=== PATIENT | male | born 1980 | race Two or more races ===

== ENCOUNTER 2024-09-29 23:17 | Emergency (ER) | payer BC, MEDICAID, SELFPAY ==
[2024-09-29 23:17] VITALS: BMI 30.5
[2024-09-30 00:25] VITALS: BP 134/79; PULSE 55; RESP 18; TEMP 36.4; O2SAT 100
--- NOTE | 2024-09-30 00:28 | EKG_ITS ---
[facility] Test Date: 2024-09-30 Pat Name: ROBERT HELTON Department: Room: - Gender: Male Manager Photo: : 1980 Requested By: Dakota Sharma Order Number: [id number] Reading MD: Dakota Sharma Measurements Intervals [place] Rate: 50 P: 62 ND: 193 QRS: 71 QRSD: 98 T: 53 QT: 404 QTc: 370 Interpretive Statements SINUS BRADYCARDIA Compared to ECG 07/29/2024 23:12:42 Sinus rhythm no longer present /store/S0/[id number]
[2024-09-30] MEDS: DIAZEPAM 5 MG TABLET 10 MG PO (01:43)
[2024-09-30 02:17] LABS: Basophils # (Auto) 0.1 Thou/mm3 (0.0-0.2); Basophils % (Auto) 1 % (0-2.5); Eosinophils # (Auto) 0.5 Thou/mm3 (0.0-0.5); Eosinophils % (Auto) 6 % (0-10); Hematocrit 39.6 % (41.0-53.0); Hemoglobin 13.3 g/dL (13.5-16.0); Immature Granulocytes % (Auto) 0 % (0-0); Immature Granulocytes Auto 0.01 Thou/mm3 (0.00-0.00); Lymphocytes # (Auto) 2.9 Thou/mm3 (1.0-4.8); Lymphocytes % (Auto) 35 % (10-50); Mean Corpuscular HGB Conc 33.6 g/dl (31.0-37.0); Mean Corpuscular Hemoglobin 27.8 pg (25.0-35.0); Mean Corpuscular Volume 83 fL (80-100); Monocytes # (Auto) 0.6 Thou/mm3 (0.0-0.8); Monocytes % (Auto) 8 % (0-12); Neutrophils # (Auto) 4.1 Thou/mm3 (1.8-7.7); Neutrophils % (Auto) 50 % (37-80); Nucleated Red Blood Cell % 0 /100 WBC (0); Platelet Count 195 Thou/mm3 (140-440); RDW Standard Deviation 38.5 fL (35.1-43.9); Red Blood Count 4.78 Miln/mm3 (4.50-5.90); White Blood Count 8.1 Thou/mm3 (3.8-10.6)
[2024-09-30 02:30] LABS: Alanine Aminotransferase 18 U/L (10-49); Albumin, Serum 4.6 gm/dL (3.5-5.0); Albumin/Globulin Ratio 1.9 (1.2-2.2); Alkaline Phosphatase 70 U/L (46-116); Anion Gap 6 (7-16); Aspartate Amino Transferase 19 U/L (0-34); BUN/Creatinine Ratio 17 Ratio (12-20); Bilirubin,Total 1.2 mg/dL (0.3-1.2); Blood Urea Nitrogen 20 mg/dL (9-23); Calcium 9.5 mg/dL (8.3-10.6); Calcium (Corrected) 9.5 mg/dL (8.5-10.1); Carbon Dioxide 27.9 mMol/L (20.0-31.0); Chloride 105 mMol/L (98-107); Creatinine (Component) 1.2 mg/dL (0.6-1.3); Estimated Creatinine Clearance 87.9 mL/min (>60); Globulin 2.4 gm/dL (2.3-3.5); Glucose 96 mg/dL (74-106); Osmolality,Calculated 280 (275-295); Potassium 3.9 mMol/L (3.4-5.1); Sodium 139 mMol/L (136-145); Troponin I < 0.020 ng/mL (0.0-0.045); eGFR > 60 See Note
[2024-09-30 02:41] LABS: B-Type Natriuretic Peptide < 20 pg/mL (0-100)
[2024-09-30 03:04] VITALS: BP 135/78; PULSE 55; RESP 16; TEMP 36.5; O2SAT 99
--- NOTE | 2024-09-30 05:32 | PD.EDANX ---
ED Anxiety RME/HPI General Chief Complaint: General Adult/Misc Complain Stated Complaint: SOB, heart palpitations Time Seen by Provider: 09/30/24 01:38 Arrival date/time: 09/29/24 23:17 44M with history of drug use and anxiety presents to ED with 2 days of heart palps and anxiety. Patient denies SI/HI. Limitations: no limitations Related Data Home Medications ?Medication ?Instructions ?Recorded ?Confirmed No Known Home Medications 03/15/18 03/15/18 Allergies Allergy/AdvReac Type Severity Reaction Status Date / Time No Known Allergies Allergy Verified 09/29/24 23:19 Review of Systems Review of Systems Systems Reviewed: All systems reviewed, normal except as documented Constitutional Constitutional: Reports system reviewed and no additional complaints, except as documented, Denies fever(s) and Denies headache(s) ENT Ears, Nose, Mouth, and Throat: Denies disequilibrium and Denies headache(s) Cardiovascular Cardiovascular: Reports system reviewed and no additional complaints, except as documented, Reports as per HPI, Denies chest pain, Denies dyspnea and Reports palpitations Respiratory Respiratory: Reports system reviewed and no additional complaints, except as documented, Denies cough and Denies dyspnea Gastrointestinal Gastrointestinal: Reports system reviewed and no additional complaints, except as documented, Denies abdominal pain, Denies nausea and Denies vomiting Neurologic Neurologic: Reports system reviewed and no additional complaints, except as documented, Denies confusion, Denies disequilibrium and Denies headache(s) Psychiatric Psychiatric: Reports as per HPI, Reports anxiety and Denies confusion Endocrine Endocrine: Reports palpitations Past Medical History Past Medical History NEUROLOGIC: Negative Neurological Disorders CARDIAC: Positive Cardiac Disorders ( They said my heart skips a beat ); Negative Congestive Heart Failure RESPIRATORY: Negative Chronic Obstructive Pulmonary Disease (COPD) GASTROINTESTINAL: Negative Gastrointestinal Disorders GENITOURINARY: Negative Genitourinary Disorders or Renal Disease MUSCULOSKELETAL: Negative Musculoskeletal Disorders ENDOCRINE: Negative Endocrine Disorders, Diabetes Mellitus Type 1 or Diabetes Mellitus Type 2 HEMATOLOGIC: Negative Blood Disorders PSYCHO/SOCIAL: Positive Anxiety OTHER HISTORY: Negative Cancer Family History FAMILY HISTORY: Negative Family Cardiac Disorders Surgical History SURGICAL: Positive Abdominal Surgery and Nephrectomy; Negative Cardiac Surgery Social History SMOKING STATUS: Never smoker SUBSTANCE USE: does not use ED Exam General Limitations: Present no limitations General appearance: Present alert and in no apparent distress Head Head exam: Present atraumatic Eye Eye exam: Present normal appearance, PERRL and EOMI ENT ENT exam: Present normal exam, normal oropharynx and mucous membranes moist Neck Neck exam: Present normal inspection, full ROM and trachea midline Chest Chest inspection: Present normal inspection and symmetric chest wall rise Respiratory Respiratory exam: Present normal lung sounds bilaterally Cardiovascular Cardiovascular exam: Present regular rate, normal rhythm and normal heart sounds Abdominal Exam Abdominal exam: Present soft and normal bowel sounds Extremities Exam Extremities exam: Present normal inspection and full ROM Back Exam Back exam: Present normal inspection and full ROM Neurological Exam Neurological exam: Present alert, oriented X3 and CN II-XII intact Psychiatric Psychiatric exam: Present normal affect and anxious Skin Skin exam: Present warm, dry, intact and normal color Course Quality Measures none Orders Category Date Time Status EKG (ED ONLY) *Do not use* NOW Care 09/30/24 00:28 Completed EKG (ED Only) Stat Exams 09/30/24 00:28 Draft BNP [B-Type Natriuretic Peptide] Stat Lab 09/30/24 01:54 Completed CBC Stat Lab 09/30/24 01:54 Completed CMP [Comprehensive Metabolic Panel] Stat Lab 09/30/24 01:54 Completed Troponin I Stat Lab 09/30/24 01:54 Completed Diazepam [Valium] Med 09/30/24 01:39 Discontinued 10 mg PO X1 ONE Vital Signs Vital signs: Vital Signs Temperature 97.5 F 09/30/24 00:25 Pulse Rate 55 L 09/30/24 00:25 Respiratory Rate 18 09/30/24 00:25 Blood Pressure 134/79 H 09/30/24 00:25 Pulse Oximetry (%) 100 09/30/24 00:25 Oxygen Delivery Method Room Air 09/30/24 00:25 Anxiety MDM Narrative MDM Narrative: 44M with history of drug use and anxiety presents to ED with 2 days of heart palps and anxiety. Patient denies SI/HI. Physical exam reveals clear ENT and lungs. RRR. Patient is afebrile, alert, but anxious. EKG is sinus prem of 55. Normal trop/BNP. No leukocytosis. CMP remarkable. Valium relieved symptoms. Counseled to see PCP about bradycardia. Patient data External records reviewed:: [facility] previous records Clinical information provided by:: patient Social determinants that could affect healthcare access:: mental health Patient has the following chronic illnesses:: anxiety and drug use How is presenting disease/condition affected by chronic disease/condition?: caused by Evaluation data The following diagnostics were reviewed and interpreted by me:: lab results and EKG tracing(s) Lab and/or radiology exams considered but not ordered:: ordered Interpretation Summary: above Medications / Prescriptions Medications or Prescriptions considered but not ordered:: ordered Medication administrations:: Medication Administration History Discontinued Medications Diazepam (Diazepam 5 Mg Tablet) 10 mg PO X1 ONE Stop: 09/30/24 01:40 Last Admin: 09/30/24 01:43 Dose: 10 mg Documented By: DB Consultations Consultation(s) initiated? (list below): No Diagnosis Differential diagnosis anxiety: hyperventilation, panic disorder, acute anxiety and other (bradycardia) Most likely diagnosis given after review of the tests above:: bradycardia and anxiety Admission Indicated Admission indicated?: not indicated Admission Request Was there a request for admission?: No Disposition Plan Disposition Plan: Discharge Discharge Attestation Discharge Attestation: The patient and all family members were given an opportunity to ask questions and understood the discharge instructions. Discharge instructions specifically effects, indications for sooner follow up or return to the emergency department, and the expected course of current diagnosis. Patient condition: Stable Discharge Plan Plan Patient Disposition: HOME (Self Care) Disposition Comment: Stable Prescriptions/Referrals Prescriptions/Med Rec: No Action No Known Home Medications Problem List Clinical Impression: Anxiety, Bradycardia Patient/Caregiver Discharge Instructions Education Materials: ED Bradycardia Additional Instructions: Please follow-up with PCP within 24-48 hours and return immediately if symptoms worsen. Follow-up with PCP about bradycardia. Print Language: Nigerian Stand Alone Forms: Patient Portal Info Letter BUSTER/KVNG Supervising Physician BUSTER/KVNG Supervising Physician: Dr. Hooks
== END 2024-09-30 03:04 | disposition home or self-care (01) ==
PROVIDERS: Physician Assistant; Emergency Provider Emergency Medicine
DX: F41.9 Anxiety disorder, unspecified (principal); R00.1 Bradycardia, unspecified
CPT/HCPCS: 36415; 80053; 83880; 84484; 85025; 93005; 99283; A9270

== ENCOUNTER 2024-10-02 20:08 | Emergency (ER) | payer BC, MEDICAID, SELFPAY ==
[2024-10-02 20:11] VITALS: BP 124/76; PULSE 84; RESP 19; TEMP 36.8; O2SAT 98
[2024-10-02 20:14] VITALS: PULSE 76; RESP 20; O2SAT 99
[2024-10-02 20:26] VITALS: BMI 30.5
--- NOTE | 2024-10-02 20:28 | PC.NURSE ---
Pt coming from home for c/o SOB, tingling to left hand, ringing in ears, and feeling like heart is racing since 1940 when pt was lying in bed. At this time pt only endorses mild tingling to left hand says all other symptoms have now resolved. Pt had similar episode of this on Thursday and was seen here. Pt is A&O x4, GCS 15, no signs of distress noted, EKG done, placed on residential monitor, bed locked in lowest position, call light within reach.
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
[2024-10-02 21:32] LABS: Basophils % (Auto) 0 % (0-2.5); Eosinophils # (Auto) 0.5 Thou/mm3 (0.0-0.5); Eosinophils % (Auto) 6 % (0-10); Hematocrit 38.6 % (41.0-53.0); Hemoglobin 12.7 g/dL (13.5-16.0); Immature Granulocytes % (Auto) 0 % (0-0); Immature Granulocytes Auto 0.02 Thou/mm3 (0.00-0.00); Lymphocytes # (Auto) 2.9 Thou/mm3 (1.0-4.8); Lymphocytes % (Auto) 36 % (10-50); Mean Corpuscular HGB Conc 32.9 g/dl (31.0-37.0); Mean Corpuscular Hemoglobin 27.9 pg (25.0-35.0); Mean Corpuscular Volume 85 fL (80-100); Monocytes # (Auto) 0.5 Thou/mm3 (0.0-0.8); Monocytes % (Auto) 6 % (0-12); Neutrophils # (Auto) 4.1 Thou/mm3 (1.8-7.7); Neutrophils % (Auto) 51 % (37-80); Nucleated Red Blood Cell % 0 /100 WBC (0); Platelet Count 205 Thou/mm3 (140-440); RDW Standard Deviation 39.5 fL (35.1-43.9); Red Blood Count 4.55 Miln/mm3 (4.50-5.90)
[2024-10-02 21:37] VITALS: BP 128/69; PULSE 64; RESP 20; O2SAT 98
[2024-10-02 21:54] LABS: Alanine Aminotransferase 14 U/L (10-49); Albumin, Serum 4.2 gm/dL (3.5-5.0); Albumin/Globulin Ratio 1.7 (1.2-2.2); Alkaline Phosphatase 70 U/L (46-116); Anion Gap 8 (7-16); Aspartate Amino Transferase 13 U/L (0-34); BUN/Creatinine Ratio 18 Ratio (12-20); Bilirubin,Total 0.9 mg/dL (0.3-1.2); Blood Urea Nitrogen 18 mg/dL (9-23); Calcium 9.6 mg/dL (8.3-10.6); Calcium (Corrected) 9.6 mg/dL (8.5-10.1); Carbon Dioxide 26.1 mMol/L (20.0-31.0); Chloride 110 mMol/L (98-107); Estimated Creatinine Clearance 105.5 mL/min (>60); Globulin 2.5 gm/dL (2.3-3.5); Glucose 85 mg/dL (74-106); Osmolality,Calculated 287 (275-295); Potassium 3.6 mMol/L (3.4-5.1); Sodium 144 mMol/L (136-145); Total Protein 6.7 gm/dL (5.7-8.2); eGFR > 60 See Note
[2024-10-02 22:19] VITALS: PULSE 67; O2SAT 99
== END 2024-10-02 22:31 | disposition home or self-care (01) ==
PROVIDERS: Registered Nurse General Practice; Emergency Provider Emergency Medicine
DX: R00.2 Palpitations (principal); R00.1 Bradycardia, unspecified
CPT/HCPCS: 36415; 80053; 85025; 93005; 99283

== ENCOUNTER 2025-01-29 01:32 | Emergency (ER) | payer BC, MEDICAID, SELFPAY ==
[2025-01-29 01:34] VITALS: BMI 30.1
--- NOTE | 2025-01-29 01:52 | EDNOTE_ITS ---
ED Abdominal Pain RME/HPI General Chief Complaint: Abdominal Pain Stated complaint: EPIGASTRIC PAIN/BURNING Time seen by provider: 01/29/25 01:45 Arrival date/time: 01/29/25 01:32 RME / HPI RME / HPI narrative: This section includes all my notes and documentations, including HPI, PE, and ED course. Hasmukh Shultz MD HPI: 45-year-old male here with a few hour history of epigastric tenderness. He describes burning pain. No significant nausea. No vomiting. No fever or chills. Had cholecystectomy in the past. Concerned about his heart. No other complaints. ROS: All negative except as documented in HPI. Physical Exam: General: Alert and oriented. No acute distress when remaining still. Eyes: Conjunctivae and lids clear. ENT: No nasal congestion. Neck: Supple. Heart: RRR. Lungs: No respiratory distress. Good air movement. No rhonchi, wheezing, rales. Abdomen: Soft with mild epigastric tenderness. Normal bowel sounds. No distension. No rebound or guarding. Back: No CVA tenderness. Skin: Warm and dry. Neuro: Alert and oriented X 3. I reviewed all diagnostic test results. My interpretation of the EKG is sinus rhythm with no acute ST?T changes. My interpretation of the KUB is no acute findings, official radiology report is pending. Blood tests unremarkable, including their troponin. At this point, diagnoses include GERD. Treatment here included famotidine and Protonix. Significant improvement noted. Recommended more outpatient workup. Based on my best medical judgment, made decision no further evaluation or treatment indicated at this time. Patient understands and agrees to the discharge instructions customized and printed, see below. Discharge instructions from Dr. Shultz: ?After evaluation, there is no heart attack. Your symptoms are due to acid ref lux (see attached handout).? ?To help heal acid reflux, take Omeprazole 40 mg every morning and Famotidine 40 mg at bedtime for a week then as needed. ?Clear liquid diet for 24 hours.? Then slowly advance diet as tolerated. ?Avoid food and beverages that can trigger and worsen GERD.? See attached handout. ?See a private doctor on 01/30/2025 for recheck and further care. To make sure there is no serious intra-abdominal condition, ask for help with more investigation not available here in the ER.? Such as EGD or scoping the stomach, colonoscopy or scoping the colon, and referral to see gastroente rologist. ?Seek immediate medical care with worsening or with any concerns. Hasmukh Shultz MD Related Data Previous Rx's ?Medication ?Instructions ?Recorded famotidine 40 mg tablet 40 mg PO .bedtime #30 tabs 0 01/29/25 omeprazole 40 mg capsule,delayed 40 mg PO QDAY #30 cap s 01/29/25 release Allergies Allergy/AdvReac Type Severity Reaction Status Date / Time No Known Allergies Allergy Verified 09/29/24 23:19 Course Quality Measures none Orders Category Date Time Status EKG (ED ONLY) *Do not use* NOW Care 01/29/25 01:56 Completed EKG (ED Only) Stat Exams 01/29/25 01:56 Draft KUB [XR abdomen 1V] Stat Exams 01/29/25 01:56 Taken Amylase Stat Lab 01/29/25 02:28 Completed CBC Stat Lab 01/29/25 02:28 Completed CMP [Comprehensive Metabolic Panel] Stat Lab 01/29/25 02:28 Completed Lipase Stat Lab 01/29/25 02:28 Completed Magnesium Stat Lab 01/29/25 02:28 Completed Troponin I Stat Lab 01/29/25 02:28 Completed Famotidine [Pepcid] Med 01/29/25 01:57 Discontinued 40 mg PO X1 ONE Pantoprazole [Protonix] Med 01/29/25 01:57 Discontinued 40 mg PO X1 ONE Vital Signs Vital signs: Vital Signs Temperature 98.4 F 01/29/25 02:11 Pulse Rate 56 L 01/29/25 02:11 Respiratory Rate 18 01/29/25 02:11 Blood Pressure 122/74 01/29/25 02:11 Pulse Oximetry (%) 100 01/29/25 02:11 Oxygen Delivery Method Room Air 01/29/25 02:11 Abdominal Pain MDM Patient data External records reviewed:: [facility] previous records Clinical information provided by:: patient Social determinants that could affect healthcare access:: none Patient has the following chronic illnesses:: None How is presenting disease/condition affected by chronic disease/condition?: no chronic disease Evaluation data The following diagnostics were reviewed and interpreted by me:: lab results, radiology exam(s) and EKG tracing(s) Lab and/or radiology exams considered but not ordered:: None Interpretation Summary: Normal diagnostics Medications / Prescriptions Medications or Prescriptions considered but not ordered:: None Medication administrations:: Medication Administration History Discontinued Medications Famotidine (Famotidine 20 Mg Tablet) 40 mg PO X1 ONE Stop: 01/29/25 01:58 Last Admin: 01/29/25 02:21 Dose: 40 mg Documented By: MARKIE Pantoprazole Sodium (Pantoprazole 40 Mg Tablet) 40 mg PO X1 ONE Stop: 01/29/25 01:58 Last Admin: 01/29/25 02:21 Dose: 40 mg Documented By: MARKIE Famotidine and Protonix Consultations Consultation(s) initiated? (list below): No Diagnosis Differential diagnosis abdominal pain: constipation, small bowel obstruction and other (GERD, gastritis, PUD) Most likely diagnosis given after review of the tests above:: GERD Admission Indicated Admission indicated?: not indicated Explain why admission is indicated or not indicated:: There was no indication for admission. Admission Request Was there a request for admission?: No Disposition Plan Disposition Plan: Discharge Discharge Attestation Discharge Attestation: The patient and all family members were given an opportunity to ask questions and understood the discharge instructions. Discharge instructions specifically effects, indications for sooner follow up or return to the emergency department, and the expected course of current diagnosis. Patient condition: Stable Discharge Plan Plan Patient Disposition: HOME (Self Care) Prescriptions/Referrals Prescriptions/Med Rec: New famotidine 40 mg tablet 40 mg PO .bedtime Qty: 30 0RF omeprazole 40 mg capsule,delayed release(DR/EC) 40 mg PO QDAY Qty: 30 0RF Referrals: No Primary/Family,Physician [Primary Care Provider] - In 1 week Problem List Clinical Impression: GERD (gastroesophageal reflux disease) Patient/Caregiver Discharge Instructions Discharge Activity: activity as tolerated Education Materials: ED GERD (Adult) Additional Instructions: Discharge instructions from Dr. Shultz: ?After evaluation, there is no heart attack. Your symptoms are due to acid reflux (see attached handout).? ?To help heal acid reflux, take Omeprazole 40 mg every morning and Famotidine 40 mg at bedtime for a week then as needed. ?Clear liquid diet for 24 hours.? Then slowly advance diet as tolerated. ?Avoid food and beverages that can trigger and worsen GERD.? See attached handout. ?See a private doctor on 01/30/2025 for recheck and further care. To make sure there is no serious intra-abdominal condition, ask for help with more investigation not available here in the ER.? Such as EGD or scoping the stomach, colonoscopy or scoping the colon, and referral to see crown and bridge technician. ?Seek immediate medical care with worsening or with any concerns. Print Language: Maori Stand Alone Forms: [place] Award Info., Patient Portal Info Letter
--- NOTE | 2025-01-29 01:56 | XR_ITS ---
Examination: Abdomen AP single view Technique: AP portable supine abdomen, single view Exam date and time: January 29, 2025 0203 hours INDICATIONS: Onset abdominal pain today. FINDINGS: Moderate to large amount of stool in the right and transverse colon No obstruction Surgical clips right abdomen No free air IMPRESSION: Nonobstructive bowel gas pattern
--- NOTE | 2025-01-29 01:56 | EKG_ITS ---
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
[2025-01-29 02:11] VITALS: BP 122/74; PULSE 56; RESP 18; TEMP 36.9; O2SAT 100
[2025-01-29] MEDS: FAMOTIDINE 20 MG TABLET 40 MG PO (02:21)
[2025-01-29] MEDS: PANTOPRAZOLE 40 MG TABLET PO (02:21)
[2025-01-29 02:58] LABS: Basophils % (Auto) 1 % (0-2.5); Eosinophils # (Auto) 0.4 Thou/mm3 (0.0-0.5); Eosinophils % (Auto) 5 % (0-10); Hematocrit 37.6 % (41.0-53.0); Hemoglobin 12.5 g/dL (13.5-16.0); Immature Granulocytes % (Auto) 0 % (0-0); Immature Granulocytes Auto 0.02 Thou/mm3 (0.00-0.00); Lymphocytes # (Auto) 2.9 Thou/mm3 (1.0-4.8); Lymphocytes % (Auto) 38 % (10-50); Mean Corpuscular HGB Conc 33.2 g/dl (31.0-37.0); Mean Corpuscular Hemoglobin 27.9 pg (25.0-35.0); Mean Corpuscular Volume 84 fL (80-100); Monocytes # (Auto) 0.7 Thou/mm3 (0.0-0.8); Monocytes % (Auto) 9 % (0-12); Neutrophils # (Auto) 3.7 Thou/mm3 (1.8-7.7); Neutrophils % (Auto) 48 % (37-80); Nucleated Red Blood Cell % 0 /100 WBC (0); Platelet Count 198 Thou/mm3 (140-440); Red Blood Count 4.48 Miln/mm3 (4.50-5.90); White Blood Count 7.7 Thou/mm3 (3.8-10.6)
[2025-01-29 03:10] LABS: Alanine Aminotransferase 15 U/L (10-49); Albumin, Serum 4.1 gm/dL (3.5-5.0); Albumin/Globulin Ratio 1.6 (1.2-2.2); Alkaline Phosphatase 62 U/L (46-116); Amylase 98 U/L (30-118); Anion Gap 8 (7-16); Aspartate Amino Transferase 17 U/L (0-34); BUN/Creatinine Ratio 18 Ratio (12-20); Bilirubin,Total 1.7 mg/dL (0.3-1.2); Blood Urea Nitrogen 20 mg/dL (9-23); Calcium 9.2 mg/dL (8.3-10.6); Calcium (Corrected) 9.2 mg/dL (8.5-10.1); Carbon Dioxide 26.5 mMol/L (20.0-31.0); Chloride 107 mMol/L (98-107); Creatinine (Component) 1.1 mg/dL (0.6-1.3); Estimated Creatinine Clearance 94.3 mL/min (>60); Globulin 2.5 gm/dL (2.3-3.5); Glucose 98 mg/dL (74-106); Lipase 62 U/L (12-53); Magnesium 1.6 mg/dL (1.6-2.6); Osmolality,Calculated 283 (275-295); Potassium 3.6 mMol/L (3.4-5.1); Sodium 141 mMol/L (136-145); Total Protein 6.6 gm/dL (5.7-8.2); Troponin I < 0.020 ng/mL (0.0-0.045); eGFR > 60 See Note
== END 2025-01-29 03:41 | disposition home or self-care (01) ==
PROVIDERS: Emergency Provider Emergency Medicine
DX: K21.9 Gastro-esophageal reflux disease without esophagitis (principal)
CPT/HCPCS: 36415; 74018; 80053; 82150; 83690; 83735; 84484; 85025; 93005; 99283; A9270

== ENCOUNTER 2025-03-30 22:42 | Emergency (ER) | payer BC, MEDICAID, SELFPAY ==
[2025-03-30 22:48] VITALS: BP 123/66; PULSE 56; RESP 16; TEMP 36.7; O2SAT 100; BMI 29.9
[2025-03-30 23:00] VITALS: PULSE 69; RESP 18; O2SAT 99
--- NOTE | 2025-03-30 23:11 | EDNOTE_ITS ---
ED Chest Pain RME/HPI General Chief Complaint: Chest Pain Stated Complaint: chest pain Time Seen by Provider: 03/30/25 23:07 Arrival date/time: 03/30/25 22:42 RME / HPI RME / HPI narrative: This section includes all my notes and documentations, including HPI, PE, and ED course. Hasmukh Shultz MD HPI: 45yo male with a history of anxiety BIBA from home presents to the ED for a chief complaint of mid chest pain for the last few hours. No radiation or migration. His pain does not worsen when he takes a deep breath. EMS administered Aspirin 162mg, nitroglycerin sublingual, and one-inch nitropaste en route with no significant improvement. Patient currently rates his pain a 2 out of 10 in severity. Patient denies any fever, chills, cough, BLE swelling. No other complaints reported. ROS: All negative except as documented in HPI. Physical Exam: General: Alert and oriented. Appears anxious. Eyes: Conjunctivae and lids clear. ENT: No nasal congestion. Neck: Supple. Heart: RRR. Lungs: No respiratory distress. Good air movement. No rhonchi, wheezing, rales. Abdomen: Soft and nontender. Skin: Warm and dry. Neuro: Alert and oriented X 3. I reviewed EMS notes. I reviewed all diagnostic test results. My interpretation of the EKG is sinus rhythm with no acute ST-T changes. Blood tests are unremarkable. At this point, diagnoses include chest pain due to anxiety. Treatment here included Xanax. Significant improvement noted. Recommended more outpatient workup. Based on my best medical judgment, made decision no further evaluation or treatment indicated at this time. Patient understands and agrees to the discharge instructions customized and printed, see below. Discharge instructions from Dr. Shultz: 1. After extensive evaluation, there is no life-threatening condition. Such as heart attack or pulmonary embolism (blood clots in your lungs) or pneumothorax (collapsed lung). 2. Your symptoms may be due to underlying stress or anxiety or nerves. This is fairly common. 3. Take Xanax as needed. Whether this helps or not will be valuable information to your private doctors. 4. See a private doctor on 04/03/2025. To make sure there is no serious underlying heart condition, ask to help you get more tests for your heart that cannot be done here in the ER. Such as Holter Monitor (cardiac monitoring at home from a day to even a month), heart stress test (on treadmill or with medication), echocardiogram (imaging of your heart structures), heart catherization (checking for blockages in your heart arteries), and a referral to see a [employer] Se[employer] Operator. 5. Seek immediate medical care with worsening or with any concerns. Hasmukh Shultz MD Related Data Previous Rx's ?Medication ?Instructions ?Recorded famotidine 40 mg tablet 40 mg PO .bedtime #30 tabs 0 01/29/25 omeprazole 40 mg capsule,delayed 40 mg PO QDAY #30 cap s 01/29/25 release alprazolam 0.5 mg tablet (Xanax) 0.5 mg PO BID PRN anx iety #10 tabs 03/31/25 Allergies Allergy/AdvReac Type Severity Reaction Status Date / Time No Known Allergies Allergy Verified 09/29/24 23:19 Review of Systems Review of Systems Systems Reviewed: All systems reviewed, normal except as documented Past Medical History Past Medical History NEUROLOGIC: Negative Neurological Disorders CARDIAC: Negative Cardiac Disorders or Congestive Heart Failure RESPIRATORY: Negative Chronic Obstructive Pulmonary Disease (COPD) GASTROINTESTINAL: Negative Gastrointestinal Disorders GENITOURINARY: Negative Genitourinary Disorders or Renal Disease MUSCULOSKELETAL: Negative Musculoskeletal Disorders ENDOCRINE: Negative Endocrine Disorders, Diabetes Mellitus Type 1 or Diabetes Mellitus Type 2 HEMATOLOGIC: Negative Blood Disorders PSYCHO/SOCIAL: Positive Anxiety OTHER HISTORY: Positive Blood Transfusions; Negative Cancer Family History FAMILY HISTORY: Negative Family Cardiac Disorders Surgical History SURGICAL: Positive Abdominal Surgery and Nephrectomy (RIGHT KIDNEY REMOVED); Negative Cardiac Surgery Social History SMOKING STATUS: Former smoker SUBSTANCE USE: does not use ED Exam Narrative Physical exam: As noted in HPI. Course Quality Measures none Orders Category Date Time Status EKG (ED ONLY) *Do not use* NOW Care 03/30/25 23:12 Completed EKG (ED Only) Stat Exams 03/30/25 23:12 Draft XR chest 1V portable Stat Exams 03/30/25 23:12 Completed Bilirubin,Direct Stat Lab 03/30/25 23:41 Completed CBC Stat Lab 03/30/25 23:41 Completed CMP [Comprehensive Metabolic Panel] Stat Lab 03/30/25 23:41 Completed Free T4 (Free Thyroxine) Stat Lab 03/30/25 23:41 Completed Magnesium Stat Lab 03/30/25 23:41 Completed TSH [Thyroid Stimulating Hormone] Stat Lab 03/30/25 23:41 Completed Troponin I Stat Lab 03/30/25 23:41 Completed ALPRazoLAM [Xanax] Med 03/30/25 23:11 Discontinued 0.5 mg PO X1 ONE Vital Signs Vital signs: Vital Signs Temperature 98.1 F 03/30/25 22:48 Pulse Rate 56 L 03/30/25 22:48 Respiratory Rate 16 03/30/25 22:48 Blood Pressure 123/66 03/30/25 22:48 Pulse Oximetry (%) 100 03/30/25 22:48 Oxygen Delivery Method Room Air 03/30/25 22:48 Chest Pain MDM Narrative MDM Narrative:: Scribe Attestation: 03/30/25 - Debbie Mora am scribing for and in the presence of Dr. Shultz. 45yo male with a history of anxiety BIBA from home presents to the ED for a chief complaint of mid chest pain for the last few hours. No radiation or migration. His pain does not worsen when he takes a deep breath. EMS administered Aspirin 162mg, nitroglycerin sublingual, and one-inch nitropaste en route with some improvement. Patient currently rates his pain a 2 out of 10 in severity. Patient denies any fever, chills, cough, BLE swelling or any other associated symptoms. No other complaints reported. Patient data External records reviewed:: [facility] previous records (Per chart review, patient was seen here on 01/29/25 for GERD.) Clinical information provided by:: patient Social determinants that could affect healthcare access:: none Patient has the following chronic illnesses:: none How is presenting disease/condition affected by chronic disease/condition?: no chronic disease Evaluation data The following diagnostics were reviewed and interpreted by me:: lab results and EKG tracing(s) (My interpretation of the EKG: Sinus bradycardia (54 bpm) with no ST-T changes. Hasmukh Shultz MD) Lab and/or radiology exams considered but not ordered:: none Interpretation Summary: I reviewed all diagnostic test results. My interpretation of the EKG is sinus rhythm with no acute ST-T changes. My interpretation of the chest x-ray is no acute findings. Blood tests are unremarkable. Medications / Prescriptions Medications or Prescriptions considered but not ordered:: none Medication administrations:: Medication Administration History Discontinued Medications Alprazolam (Alprazolam 0.25 Mg Tablet) 0.5 mg PO X1 ONE Stop: 03/30/25 23:12 Last Admin: 03/30/25 23:50 Dose: 0.5 mg Documented By: CCT Xanax Consultations Consultation(s) initiated? (list below): No Diagnosis Chest Pain Differential Diagnosis: pneumothorax, stable angina, unstable angina pectoris, atypical chest pain, st elevation myocardial infarction, costochondritis, biliary colic and other (Anxiety) Most likely diagnosis given after review of the tests above:: Chest pain due to anxiety Admission Indicated Admission indicated?: not indicated Explain why admission is indicated or not indicated:: With significant improvement, there was no indication for admission. Admission Request Was there a request for admission?: No Disposition Plan Disposition Plan: Discharge Discharge Attestation Discharge Attestation: The patient and all family members were given an opportunity to ask questions and understood the discharge instructions. Discharge instructions specifically effects, indications for sooner follow up or return to the emergency department, and the expected course of current diagnosis. Patient condition: Stable Discharge Plan Plan Patient Disposition: HOME (Self Care) Prescriptions/Referrals Prescriptions/Med Rec: New alprazolam [Xanax] 0.5 mg tablet 0.5 mg PO BID PRN (Reason: anxiety) Qty: 10 0RF No Action famotidine 40 mg tablet 40 mg PO .bedtime Qty: 30 0RF omeprazole 40 mg capsule,delayed release(DR/EC) 40 mg PO QDAY Qty: 30 0RF Referrals: Sujata Mares, [employer]PERATOR [Primary Care Provider] - In 1 week Problem List Clinical Impression: Chest pain Patient/Caregiver Discharge Instructions Discharge Activity: activity as tolerated Education Materials: ED Anxiety Reaction, ED Panic Attack Additional Instructions: Discharge instructions from Dr. Shultz: 1. After extensive evaluation, there is no life-threatening condition.? Such as heart attack or pulmonary embolism (blood clots in your lungs) or pneumothorax (collapsed lung). 2. Your symptoms may be due to underlying stress or anxiety or nerves.? This is fairly common. 3. Take Xanax as needed.? Whether this helps or not will be valuable information to your private doctors. 4. See a private doctor on 04/03/2025. To make sure there is no serious underlying heart condition, ask to help you get more tests for your heart that cannot be done here in the ER.? Such as Holter Monitor (cardiac monitoring at home from a day to even a month), heart stress test (on treadmill or with medication), echocardiogram (imaging of your heart structures), heart catherization (checking for blockages in your heart arteries), and a referral to see a Felled Seam Operator. 5. Seek immediate medical care with worsening or with any concerns.?? Print Language: [place] Stand Alone Forms: [place] Award Info., Work/School Release, Patient Portal Info Letter
--- NOTE | 2025-03-30 23:12 | EKG_ITS ---
[facility] Test Date: 2025-03-30 Pat Name: ROBERT HELTON Department: Room: - Gender: Male Security Administrator: : [id number] Requested By: Hasmukh Watts Order Number: [id number] Reading MD: Hasmukh Watts Measurements Intervals [place] Rate: 54 P: 70 IA: 198 QRS: 71 QRSD: 97 T: 56 QT: 395 QTc: 375 Interpretive Statements SINUS BRADYCARDIA Compared to ECG 01/29/2025 02:14:42 No significant changes /store/S0/[id number]/ecg/[id number].pdf
--- NOTE | 2025-03-30 23:12 | XR_ITS ---
Examination: AP chest single view Technique AP portable upright chest single view Date and time: March 30, 2025 11:30 PM Comparison July 27, 2024 INDICATIONS: Chest pain and shortness of breath today FINDINGS: Normal heart size [id number] elevation right hemidiaphragm No pneumonia or pulmonary edema IMPRESSION: No pneumonia or pulmonary edema
[2025-03-30 23:50] LABS: Basophils # (Auto) 0.1 Thou/mm3 (0.0-0.2); Basophils % (Auto) 1 % (0-2.5); Eosinophils # (Auto) 0.4 Thou/mm3 (0.0-0.5); Eosinophils % (Auto) 6 % (0-10); Hematocrit 34.2 % (41.0-53.0); Hemoglobin 11.9 g/dL (13.5-16.0); Immature Granulocytes % (Auto) 0 % (0-0); Lymphocytes # (Auto) 2.7 Thou/mm3 (1.0-4.8); Lymphocytes % (Auto) 39 % (10-50); Mean Corpuscular HGB Conc 34.8 g/dl (31.0-37.0); Mean Corpuscular Volume 81 fL (80-100); Monocytes # (Auto) 0.6 Thou/mm3 (0.0-0.8); Monocytes % (Auto) 8 % (0-12); Neutrophils # (Auto) 3.2 Thou/mm3 (1.8-7.7); Neutrophils % (Auto) 46 % (37-80); Nucleated Red Blood Cell % 0 /100 WBC (0); Platelet Count 185 Thou/mm3 (140-440); RDW Standard Deviation 38.4 fL (35.1-43.9); Red Blood Count 4.25 Miln/mm3 (4.50-5.90); White Blood Count 6.9 Thou/mm3 (3.8-10.6)
[2025-03-30] MEDS: ALPRazoLAM 0.25 MG TABLET 0.5 MG PO (23:50)
[2025-03-30 23:55] VITALS: BP 113/66; PULSE 53; RESP 19; TEMP 36.6; O2SAT 97
[2025-03-31 00:11] LABS: Alanine Aminotransferase 14 U/L (10-49); Albumin/Globulin Ratio 1.9 (1.2-2.2); Alkaline Phosphatase 58 U/L (46-116); Anion Gap 12 (7-16); Aspartate Amino Transferase 16 U/L (0-34); BUN/Creatinine Ratio 21 Ratio (12-20); Bilirubin,Direct 0.4 mg/dL (0.0-0.3); Bilirubin,Total 1.3 mg/dL (0.3-1.2); Blood Urea Nitrogen 21 mg/dL (9-23); Calcium 8.5 mg/dL (8.3-10.6); Calcium (Corrected) 8.5 mg/dL (8.5-10.1); Carbon Dioxide 23.7 mMol/L (20.0-31.0); Chloride 109 mMol/L (98-107); Estimated Creatinine Clearance 103.5 mL/min (>60); Free T4 (Free Thyroxine) 0.83 ng/dL (0.89-1.76); Globulin 2.1 gm/dL (2.3-3.5); Glucose 93 mg/dL (74-106); Magnesium 1.6 mg/dL (1.6-2.6); Osmolality,Calculated 291 (275-295); Potassium 3.4 mMol/L (3.4-5.1); Sodium 145 mMol/L (136-145); Thyroid Stimulating Hormone 31.14 uIU/mL (0.55-4.78); Total Protein 6.1 gm/dL (5.7-8.2); Troponin I < 0.002 ng/mL (0.0-0.045); eGFR > 60 See Note
[2025-03-31 01:55] VITALS: BP 106/70; PULSE 55; RESP 20; TEMP 36.4; O2SAT 98
== END 2025-03-31 01:55 | disposition home or self-care (01) ==
PROVIDERS: Emergency Provider Emergency Medicine; PCP Nurse Practitioner
DX: R07.9 Chest pain, unspecified (principal); R06.02 Shortness of breath; R00.1 Bradycardia, unspecified; F41.9 Anxiety disorder, unspecified
CPT/HCPCS: 36415; 71045; 80053; 82248; 83735; 84439; 84443; 84484; 85025; 93005; 99283; A9270